=== PATIENT | female | born 1990 | race American Indian/Alaskan Native ===

== ENCOUNTER 2020-05-16 15:03 | Emergency (ER) | payer BC ==
[2020-05-16 16:01] LABS: Hematocrit 30.3 % (30.3-42.9); Hemoglobin 9.6 gm/dl (10.1-14.3); Mean Corpuscular HGB Conc 32 % (30-34); Mean Corpuscular Volume 82 fl (79-97); Platelet Count 349 K/mm3 (140-440); Red Cell Distribution Width 17.4 % (13.2-15.2)
[2020-05-16 16:29] LABS: Alanine Aminotransferase 16 units/L (7-56); Albumin 3.7 g/dL (3.9-5); Blood Urea Nitrogen 15 mg/dL (7-17); Calcium 9.1 mg/dL (8.4-10.2); Hemolysis Index 5
[2020-05-16 16:31] LABS: BUN/Creatinine Ratio 25
--- NOTE | 2020-05-16 16:32 | Event Note ---
ED Screening Note ED Screening Note: pt states she had a D&C on 04/29/20 states she feels fatigue and generalized weakness +vaginal bleeding 04/29/20 states only having to change once a day did not go to her follow up appt for her D&C mild intermittent cramping no fever no n/v/d no abnormal discharge PMHx none no allergies to meds This initial assessment/diagnostic orders/clinical plan/treatment(s) is/are subject to change based on patients health status, clinical progression and re- assessment by fellow clinical providers in the ED. Further treatment and workup at subsequent clinical providers discretion. Patient/guardian urged not to elope from the ED as their condition may be serious if not clinically assessed and managed. Initial orders include: labs, UA, US
--- NOTE | 2020-05-16 16:46 | Ultrasound Report ---
PELVIC ULTRASOUND. HISTORY: Heavy bleeding status post . FINDINGS: Imaging was performed transabdominally and endovaginally. The uterus measures 8 x 3.7 x 6.5 cm. The endometrial stripe is focally thickened measures 14 mm. A tiny cystic structure measures 5 m m. Right ovary measures 2.8 x 1.3 cm. Left ovary measures 3.2 x 1.6 x 3.4 cm. Both ovaries demonstrate a ppropriate flow. Negative for adnexal mass or fluid. IMPRESSION: 1. Localized endometrial thickening with mild vascularity and a small cystic area. This is worrisome for retained products. 2. Adnexa are unremarkable. Signer Name: Milton Moore MD Signed: 05/16/2020 4:42 PM Workstation Name: [id number]
[2020-05-16 16:59] LABS: Anisocytosis 1+; Basophils % (Manual) 0 % (0.0-1.8); Ovalocytes Few; Poikilocytosis Few; Schistocytes Rare; Total Cells Counted 100
[2020-05-16 19:32] LABS: Bacteria,Urine 1+ /HPF (Negative); Bilirubin,Urine NEG (Negative); Blood,Urine NEG (Negative); Color,Urine Straw (Yellow); Mucus,Urine FEW /HPF; Protein,Urine <15 mg/dL mg/dL (Negative); Urobilinogen,Urine < 2.0 mg/dL (<2.0); WBC,Urine < 1.0 /HPF (0.0-6.0)
[2020-05-16] MEDS ORDERED: SODIUM CHLORIDE 0.9% 1000 ML 1,000 ML IV ONE (20:59)
--- NOTE | 2020-05-16 21:46 | Emergency Department Report ---
ED Female HPI - General Chief complaint: Vaginal Bleeding Stated complaint: VAG BLEED Time Seen by Provider: 05/16/20 16:30 Source: patient Mode of arrival: Ambulatory Limitations: No Limitations - History of Present Illness Initial comments: This is a 30-year-old female nontoxic, well nourished in appearance, no acute signs of distress presents to the ED with c/o of vaginal bleeding x3 weeks. Patient stated on 04/29/2020 had a D&C procedure and since then continue to have vaginal bleeding. Stated has some cramping to pelvic area. Patient stated has some dizziness and weakness. Patient states she goes about 1 pad a day. Patient denies any abdominal pain. Patient denies any vaginal discharge or foul odor. Patient denies any nausea, vomiting, chest pain, shortness of breathe, fever, chills, headache, stiff neck, numbness, tingling. Patient denies any urinary symptoms. Patient denies any allergies or PMH. Procedure has been done at [facility]. Complaint: vaginal bleeding -: week(s) Radiation: non-radiating Severity: mild Severity scale (0 -10): 3 Quality: cramping Consistency: intermittent Improves with: none Worsens with: none Associated Symptoms: vaginal bleeding. denies: vaginal discharge, abdominal pain, nausea/vomiting, fever/chills, headaches, loss of appetite, dysuria, hematuria, rash, seizure, shortness of breath, syncope, weakness - Related Data Previous Rx's Medication Instructions Recorded Last Taken Type Hyoscyamine Subl [Levsin Sl 0.125 0.125 mg SL Q4HR PRN #20 tablet 05/20/18 Unknown Rx TAB] Ondansetron [Zofran Odt] 4 mg PO Q8HR #20 tab.rapdis 05/20/18 Unknown Rx Methylergonovine [Methergine] 0.2 mg PO Q8HR #9 tablet 05/16/20 Unknown Rx Allergies Allergy/AdvReac Type Severity Reaction Status Date / Time No Known Allergies Allergy Unverified 05/20/18 14:21 ED Review of Systems ROS: Stated complaint: VAG BLEED Other details as noted in HPI Constitutional: denies: chills, fever Eyes: denies: eye pain, eye discharge, vision change ENT: denies: ear pain, throat pain Respiratory: denies: cough, shortness of breath, wheezing Cardiovascular: denies: chest pain, palpitations Endocrine: no symptoms reported Gastrointestinal: denies: abdominal pain, nausea, diarrhea Genitourinary: abnormal menses. denies: urgency, dysuria, discharge Musculoskeletal: denies: back pain, joint swelling, arthralgia Skin: denies: rash, lesions Neurological: denies: headache, weakness, paresthesias Psychiatric: denies: anxiety, depression Hematological/Lymphatic: denies: easy bleeding, easy bruising ED Past Medical Hx - Past Medical History Previous Medical History?: No - Surgical History Past Surgical History?: Yes Additional Surgical History: gastric bypass. - Social History Smoking Status: Never Smoker Substance Use Type: None - Medications Home Medications: Home Medications Medication Instructions Recorded Confirmed Last Taken Type Hyoscyamine Subl [Levsin Sl 0.125 0.125 mg SL Q4HR PRN #20 tablet 05/20/18 Unknown Rx TAB] Ondansetron [Zofran Odt] 4 mg PO Q8HR #20 tab.rapdis 05/20/18 Unknown Rx Methylergonovine [Methergine] 0.2 mg PO Q8HR #9 tablet 05/16/20 Unknown Rx ED Physical Exam - General Limitations: No Limitations General appearance: alert, in no apparent distress - Head Head exam: Present: atraumatic, normocephalic - Eye Eye exam: Present: normal appearance - ENT ENT exam: Present: mucous membranes moist - Neck Neck exam: Present: normal inspection, full ROM - Respiratory Respiratory exam: Absent: respiratory distress - Cardiovascular Cardiovascular Exam: Present: regular rate - GI/Abdominal GI/Abdominal exam: Present: soft, normal bowel sounds. Absent: distended, tenderness, guarding, rebound, rigid, diminished bowel sounds - External exam: Present: normal external exam, other ([employer] cardiothoracic physiotherapist present during exam). Absent: erythema, swelling, lesions, lacerations, ecchymosis, bleeding Speculum exam: Present: normal speculum exam, other ([employer] cardiothoracic physiotherapist present during exam). Absent: erythema, vaginal discharge, cervical discharge, vaginal bleeding, foreign body, tissue, laceration Bi-manual exam: Present: normal bi-manual exam, other ([employer] cardiothoracic physiotherapist present during exam). Absent: cervical motion tendernes, adnexal tenderness, adnexal mass, uterine enlargement, uterine tenderness - Extremities Exam Extremities exam: Present: normal inspection - Back Exam Back exam: Present: full ROM - Neurological Exam Neurological exam: Present: alert, oriented X3, normal gait - Psychiatric Psychiatric exam: Present: normal affect, normal mood - Skin Skin exam: Present: warm, dry, intact, normal color. Absent: rash ED Course Vital Signs 05/16/20 15:16 Temperature 98.2 F Pulse Rate 77 Respiratory 16 Rate Blood Pressure 124/69 [Right] O2 Sat by Pulse 95 Oximetry - Reevaluation(s) Reevaluation #1: 05/16/20 22:03 Patient is speaking in full sentences with no signs of distress noted. - Consultations Consultation #1: 05/16/20 22:02 Patient has been consulted with Luis Sanders (OBGYN) about patient history, physical exam, and labs and stated patient to be given Methergine 0.2 mg 3 times daily for 3 days and will follow up outpatient in her office in 3 days. ED Medical Decision Making - Lab Data Result diagrams: 05/16/20 15:45 05/16/20 21:09 Lab Results 05/16/20 05/16/20 05/16/20 Range/Units 15:45 15:45 21:09 WBC 3.7 L (4.5-11.0) K/mm3 RBC 3.70 (3.65-5.03) M/mm3 Hgb 9.6 L (10.1-14.3) gm/dl Hct 30.3 (30.3-42.9) % MCV 82 (79-97) fl MCH 26 L (28-32) pg MCHC 32 (30-34) % RDW 17.4 H (13.2-15.2) % Plt Count 349 (140-440) K/mm3 Add Manual Diff Complete Total Counted 100 Seg Neutrophils % Attraction Attendant Seg Neuts % (Manual) 34.0 L (40.0-70.0) % Band Neutrophils % 0 % Lymphocytes % (Manual) 52.0 H (13.4-35.0) % Reactive Lymphs % (Man) 0 % Monocytes % (Manual) 13.0 H (0.0-7.3) % Eosinophils % (Manual) 1.0 (0.0-4.3) % Basophils % (Manual) 0 (0.0-1.8) % Metamyelocytes % 0 % Myelocytes % 0 % Promyelocytes % 0 % Blast Cells % 0 % Nucleated RBC % Not Reportable Seg Neutrophils # Man 1.3 L (1.8-7.7) K/mm3 Band Neutrophils # 0.0 K/mm3 Lymphocytes # (Manual) 1.9 (1.2-5.4) K/mm3 Abs React Lymphs (Man) 0.0 K/mm3 Monocytes # (Manual) 0.5 (0.0-0.8) K/mm3 Eosinophils # (Manual) 0.0 (0.0-0.4) K/mm3 Basophils # (Manual) 0.0 (0.0-0.1) K/mm3 Metamyelocytes # 0.0 K/mm3 Myelocytes # 0.0 K/mm3 Promyelocytes # 0.0 K/mm3 Blast Cells # 0.0 K/mm3 WBC Morphology Not Reportable Hypersegmented Neuts Not Reportable Hyposegmented Neuts Not Reportable Hypogranular Neuts Not Reportable Smudge Cells Not Reportable Toxic Granulation Not Reportable Toxic Vacuolation Not Reportable Dohle Bodies Not Reportable Pelger-Huet Anomaly Not Reportable Radha Rods Not Reportable Platelet Estimate Not Reportable Clumped Platelets Not Reportable Plt Clumps, EDTA Not Reportable Large Platelets Not Reportable Giant Platelets Not Reportable Platelet Satelliting Not Reportable Plt Morphology Comment Not Reportable RBC Morphology Not Reportable Dimorphic RBCs Not Reportable Polychromasia Not Reportable Hypochromasia Not Reportable Poikilocytosis Few Anisocytosis 1+ Microcytosis Rare Macrocytosis Not Reportable Spherocytes Not Reportable Pappenheimer Bodies Not Reportable Sickle Cells Not Reportable Target Cells Not Reportable Tear Drop Cells Not Reportable Ovalocytes Few Helmet Cells Not Reportable Guillen-[place]acks[place] Bodies Not Reportable [place] Rings Not Reportable [place] Cells Not Reportable Bite Cells Not Reportable Crenated Cell Not Reportable Elliptocytes Not Reportable Acanthocytes (Spur) Not Reportable Rouleaux Not Reportable Hemoglobin C Crystals Not Reportable Schistocytes Rare Malaria parasites Not Reportable Mychal Bodies Not Reportable Hem Pathologist Commnt No Sodium 142 (137-145) mmol/L Potassium 5.1 H 4.0 D (3.6-5.0) mmol/L Chloride 110.2 H (98-107) mmol/L Carbon Dioxide 27 (22-30) mmol/L Anion Gap 10 mmol/L BUN 15 (7-17) mg/dL Creatinine 0.6 (0.6-1.2) mg/dL Estimated GFR > 60 ml/min BUN/Creatinine Ratio 25 % Glucose 91 (65-100) mg/dL Calcium 9.1 (8.4-10.2) mg/dL Total Bilirubin 0.20 (0.1-1.2) mg/dL AST 19 (5-40) units/L ALT 16 (7-56) units/L Alkaline Phosphatase 81 (35-129) units/L Total Protein 6.6 (6.3-8.2) g/dL Albumin 3.7 L (3.9-5) g/dL Albumin/Globulin Ratio 1.3 % Urine Color (Yellow) Urine Turbidity (Clear) Urine pH (5.0-7.0) Ur Specific Lenora (1.003-1.030) Urine Protein (Negative) mg/dL Urine Glucose (UA) (Negative) mg/dL Urine Ketones (Negative) mg/dL Urine Blood (Negative) Urine Nitrite (Negative) Urine Bilirubin (Negative) Urine Urobilinogen (<2.0) mg/dL Ur Leukocyte Esterase (Negative) Urine WBC (Auto) (0.0-6.0) /HPF Urine RBC (Auto) (0.0-6.0) /HPF U Epithel Cells (Auto) (0-13.0) /HPF Urine Bacteria (Auto) (Negative) /HPF Urine Mucus /HPF 05/16/20 Range/Units Unknown WBC (4.5-11.0) K/mm3 RBC (3.65-5.03) M/mm3 Hgb (10.1-14.3) gm/dl Hct (30.3-42.9) % MCV (79-97) fl MCH (28-32) pg MCHC (30-34) % RDW (13.2-15.2) % Plt Count (140-440) K/mm3 Add Manual Diff Total Counted Seg Neutrophils % Seg Neuts % (Manual) (40.0-70.0) % Band Neutrophils % % Lymphocytes % (Manual) (13.4-35.0) % Reactive Lymphs % (Man) % Monocytes % (Manual) (0.0-7.3) % Eosinophils % (Manual) (0.0-4.3) % Basophils % (Manual) (0.0-1.8) % Metamyelocytes % % Myelocytes % % Promyelocytes % % Blast Cells % % Nucleated RBC % Seg Neutrophils # Man (1.8-7.7) K/mm3 Band Neutrophils # K/mm3 Lymphocytes # (Manual) (1.2-5.4) K/mm3 Abs React Lymphs (Man) K/mm3 Monocytes # (Manual) (0.0-0.8) K/mm3 Eosinophils # (Manual) (0.0-0.4) K/mm3 Basophils # (Manual) (0.0-0.1) K/mm3 Metamyelocytes # K/mm3 Myelocytes # K/mm3 Promyelocytes # K/mm3 Blast Cells # K/mm3 WBC Morphology Hypersegmented Neuts Hyposegmented Neuts Hypogranular Neuts Smudge Cells Toxic Granulation Toxic Vacuolation Dohle Bodies Pelger-Huet Anomaly Radha Rods Platelet Estimate Clumped Platelets Plt Clumps, EDTA Large Platelets Giant Platelets Platelet Satelliting Plt Morphology Comment RBC Morphology Dimorphic RBCs Polychromasia Hypochromasia Poikilocytosis Anisocytosis Microcytosis Macrocytosis Spherocytes Pappenheimer Bodies Sickle Cells Target Cells Tear Drop Cells Ovalocytes Helmet Cells Guillen-[place]acks[place] Bodies [place] Rings Khushboo Cells Bite Cells Crenated Cell Elliptocytes Acanthocytes (Spur) Rouleaux Hemoglobin C Crystals Schistocytes Malaria parasites Mychal Bodies Hem Pathologist Commnt Sodium (137-145) mmol/L Potassium (3.6-5.0) mmol/L Chloride (98-107) mmol/L Carbon Dioxide (22-30) mmol/L Anion Gap mmol/L BUN (7-17) mg/dL Creatinine (0.6-1.2) mg/dL Estimated GFR ml/min BUN/Creatinine Ratio % Glucose (65-100) mg/dL Calcium (8.4-10.2) mg/dL Total Bilirubin (0.1-1.2) mg/dL AST (5-40) units/L ALT (7-56) units/L Alkaline Phosphatase (35-129) units/L Total Protein (6.3-8.2) g/dL Albumin (3.9-5) g/dL Albumin/Globulin Ratio % Urine Color Straw (Yellow) Urine Turbidity Clear (Clear) Urine pH 5.0 (5.0-7.0) Ur Specific Lenora 1.015 (1.003-1.030) Urine Protein <15 mg/dl (Negative) mg/dL Urine Glucose (UA) Neg (Negative) mg/dL Urine Ketones Neg (Negative) mg/dL Urine Blood Neg (Negative) Urine Nitrite Neg (Negative) Urine Bilirubin Neg (Negative) Urine Urobilinogen < 2.0 (<2.0) mg/dL Ur Leukocyte Esterase Neg (Negative) Urine WBC (Auto) < 1.0 (0.0-6.0) /HPF Urine RBC (Auto) 2.0 (0.0-6.0) /HPF U Epithel Cells (Auto) 1.0 (0-13.0) /HPF Urine Bacteria (Auto) 1+ (Negative) /HPF Urine Mucus Few /HPF - Radiology Data Referring Physician: THERESE MOSER Patient Name: KATHI SAMUEL Date of : 1990 Sex: Female Report Date: 2020-05-16 Report Status: Finalized [address] Report Signed Patient: KATHI SAMUEL MR#: [id number] : 1990 Acct:[id number] Age/Sex: 30 / F ADM Date: 05/16/20 Loc: ED Attending Dr: Ordering Physician: OVIDIO AG Date of Service: 05/16/20 Procedure(s): US transvaginal Accession Number(s): [id number] cc: OVIDIO AG PELVIC ULTRASOUND. HISTORY: Heavy bleeding status post . FINDINGS: Imaging was performed transabdominally and endovaginally. The uterus measures 8 x 3.7 x 6.5 cm. The endometrial stripe is focally thickened measures 14 mm. A tiny cystic structure measures 5 mm. Right ovary measures 2.8 x 1.3 cm. Left ovary measures 3.2 x 1.6 x 3.4 cm. Both ovaries demonstrate appropriate flow. Negative for adnexal mass or fluid. IMPRESSION: 1. Localized endometrial thickening with mild vascularity and a small cystic area. This is worrisome for retained products. 2. Adnexa are unremarkable. Signer Name: Milton Moore MD Signed: 05/16/2020 4:42 PM Workstation Name: [id number] Transcribed By: LIT Dictated By: Milton Moore MD Electronically Authenticated By: Milton Moore MD Signed Date/Time: 05/16/201641 DD/ 1634 TD/TT: Referring Physician: THERESE MOSER Patient Name: KATHI SAMUEL Date of : 1990 Sex: Female Report Date: 2020-05-16 Report Status: [place] [address] Ultrasound Report Signed Patient: KATHI SAMUEL MR#: [id number] : 1990 Acct:[id number] Age/Sex: 30 / F ADM Date: 05/16/20 Loc: ED Attending Dr: Ordering Physician: OVIDIO AG Date of Service: 05/16/20 Procedure(s): US pelvic complete Accession Number(s): [id number] cc: OVIDIO AG PELVIC ULTRASOUND. HISTORY: Heavy bleeding status post . FINDINGS: Imaging was performed transabdominally and endovaginally. The uterus measures 8 x 3.7 x 6.5 cm. The endometrial stripe is focally thickened measures 14 mm. A tiny cystic structure measures 5 mm. Right ovary measures 2.8 x 1.3 cm. Left ovary measures 3.2 x 1.6 x 3.4 cm. Both ovaries demonstrate appropriate flow. Negative for adnexal mass or fluid. IMPRESSION: 1. Localized endometrial thickening with mild vascularity and a small cystic area. This is worrisome for retained products. 2. Adnexa are unremarkable. Signer Name: Milton Moore MD Signed: 05/16/2020 4:42 PM Workstation Name: [id number] Transcribed By: LIT Dictated By: Milton Moore MD Electronically Authenticated By: Milton Moore MD Signed Date/Time: 05/16/201641 DD/ 1634 TD/TT: - Medical Decision Making 30-year-old female that presents with products of conception. Patient is stable and was examined by me. Patient consulted with [facility]. Patient was given IV fluids which stated symptoms of dizziness has improved and subsided. Patient was notified of the ultrasound and labs with no questions noted by the patient. Patient was instructed to follow-up with a [facility] doctor in 3 days or if symptoms worsen and continue return to emergency room as soon as possible. At time of discharge, the patient does not seem toxic or ill in appearance. No acute signs of distress noted. Patient agrees to discharge treatment plan of care. No further questions noted by the patient. Critical care attestation.: If time is entered above; I have spent that time in minutes in the direct care of this critically ill patient, excluding procedure time. ED Disposition Clinical Impression: Products of conception, retention Disposition: DC-01 TO HOME OR SELFCARE Is pt being admited?: No Does the pt Need Aspirin: No Condition: Stable Instructions: Methylergonovine tablets Additional Instructions: Follow-up with a [facility] doctor in 3 days or if symptoms worsen and continue return to emergency room as soon as possible. Prescriptions: Methylergonovine [Methergine] 0.2 mg PO Q8HR #9 tablet Referrals: PRIMARY CAREMD [Primary Care Provider] - 3-5 Days LUIS CAMILO MD [Staff Physician] - 05/19/20 Forms: Work/School Release Form(ED) Time of Disposition: 22:08
[2020-05-16 22:52] VITALS: BP 112/66
== END 2020-05-16 22:15 | disposition home or self-care (01) ==
LOC: ED 15:03
DX: O73.1 Retained portions of placenta and membranes, without hemorrhage (principal); Z98.890 Other specified postprocedural states; Z79.899 Other long term (current) drug therapy; Z3A.00 Weeks of gestation of pregnancy not specified
CPT/HCPCS: 36415; 76830; 76856; 80053; 81001; 84132; 85007; 85025; 96360; 99284; J7030